=== PATIENT | female | born 1995 | race Caucasian/White ===

== ENCOUNTER 2021-07-18 21:14 | Emergency (ER) | payer MEDICAID | END 2021-07-18 23:18 | disposition left against medical advice (07) | LOC: ER 21:14 | DX: S99.911A Unspecified injury of right ankle, initial encounter (principal); Z53.21 Procedure and treatment not carried out due to patient leaving prior to being seen by health care provider; X58.XXXA Exposure to other specified factors, initial encounter; Y93.21 Activity, ice skating; Y92.89 Other specified places as the place of occurrence of the external cause; Y99.8 Other external cause status ==